=== PATIENT | male | born 2000 | race Caucasian/White ===

== ENCOUNTER 2025-03-18 00:43 | Emergency (ER) | payer MEDICAID, SELFPAY ==
[2025-03-18 00:44] VITALS: BMI 25.7
--- NOTE | 2025-03-18 01:43 | XR_ITS ---
Examination: PA chest single view Technique: Upright PA chest single view Date and time: March 18, 2025, 0142 hrs., Comparison April 06, 2023 Indications: Fever bodyaches coughing beginning 2 weeks ago Findings: Normal heart size. Lungs are clear. Osseous structures are intact Impression: No active disease
[2025-03-18 01:45] VITALS: BP 135/81; PULSE 98; RESP 18; TEMP 38.1; O2SAT 100
[2025-03-18 02:05] LABS: Strep A Rapid Negative (Negative)
[2025-03-18 02:29] VITALS: TEMP 38.1
[2025-03-18] MEDS: IBUPROFEN TAB 400 MG TABLET 800 MG PO (02:29)
[2025-03-18 03:04] LABS: Collection Type, Urine Voided; Squamous Epithelial Cell,Urine 0 /hpf (0-5)
[2025-03-18 03:14] LABS: Bacteria,Urine Rare; Bilirubin,Urine Negative (Negative); Blood,Urine Negative (Negative); Clarity,Urine Clear (Clear/Hazy); Color,Urine Colorless (Lt Yel-Yel); Glucose, Urine Negative (Negative); Ketones,Urine Negative (Negative); Leukocyte Esterase,Urine Negative (Negative); Nitrite,Urine Negative (Negative); PH,Urine 6.5 (5.0-7.0); Protein,Urine Negative (Neg - Trace); RBC,Urine < 1 /hpf (0-3); Specific Gravity,Urine 1.007 (1.001-1.035); Urobilinogen,Urine Negative mg/dL (0.0-1.0); WBC,Urine 1 /hpf (0-5)
[2025-03-18 03:54] VITALS: PULSE 105; RESP 17; TEMP 37.5; O2SAT 98
[2025-03-18 03:57] VITALS: TEMP 37.5
--- NOTE | 2025-03-18 03:57 | EDNOTE_ITS ---
ED Fever RME/HPI General Chief Complaint: Fever Stated Complaint: FEVER, BODYACHES Time Seen by Provider: 03/18/25 01:06 Arrival date/time: 03/18/25 00:43 This is a case of 24-year-old male with no medical history came in in the emergency room due to fever of 102 associated with cough nasal congestion and sore throat patient took COVID test at home and positive no shortness of breath no chest pain persistence of the symptoms this patient decided to start consult here in the emergency room Limitations: no limitations Related Data Previous Rx's ?Medication ?Instructions ?Recorded ciprofloxacin HCl 0.3 % eye drops See Rx Instructions ophthalmic 04/23/18 (eye) .COMPLEX #5 mL lorazepam 0.5 mg tablet (Ativan) 0.5 mg PO QDAY PRN an xiety #14 tabs 06/01/19 ibuprofen 800 mg tablet 800 mg PO TID PRN pain #30 t abs 03/06/23 albuterol sulfate 90 mcg/actuation 1 inh inhalation Q4 H PRN shortness 03/18/25 aerosol inhaler (Ventolin HFA) of breath or wheezing # 8.5 grams amoxicillin 875 mg-potassium 1 tab PO BID #20 tabs clavulanate 125 mg tablet ibuprofen 800 mg tablet 800 mg PO Q8H PRN pain #20 t abs 03/18/25 promethazine-DM 6.25 mg-15 mg/5 mL 5 ml PO Q6H PRN cou gh #118 mL 03/18/25 oral syrup Allergies Allergy/AdvReac Type Severity Reaction Status Date / Time No Known Allergies Allergy Verified 04/06/23 20:25 Review of Systems Review of Systems Systems Reviewed: All systems reviewed, normal except as documented Constitutional Constitutional: Reports system reviewed and no additional complaints, except as documented and Reports as per HPI ENT Ears, Nose, Mouth, and Throat: Reports system reviewed and no additional complaints, except as documented and Reports as per HPI Cardiovascular Cardiovascular: Reports system reviewed and no additional complaints, except as documented and Reports as per HPI Respiratory Respiratory: Reports system reviewed and no additional complaints, except as documented and Reports as per HPI Gastrointestinal Gastrointestinal: Reports system reviewed and no additional complaints, except as documented and Reports as per HPI Neurologic Neurologic: Reports system reviewed and no additional complaints, except as documented and Reports as per HPI Past Medical History Past Medical History CARDIAC: Negative Cardiac Disorders or Congestive Heart Failure RESPIRATORY: Negative Chronic Obstructive Pulmonary Disease (COPD) or Asthma GENITOURINARY: Negative Renal Disease ENDOCRINE: Negative Diabetes Mellitus Type 1 or Diabetes Mellitus Type 2 HEMATOLOGIC: Negative Sickle Cell Disease Social History SMOKING STATUS: Never smoker Physical Exam General Limitations: no limitations General appearance: alert, in no apparent distress and other (Patient is awake alert oriented not in distress nontoxic looking well-hydrated well-nourished) Head Head exam: atraumatic, normocephalic and normal inspection Eye Eye exam: Present normal appearance, PERRL and EOMI ENT ENT exam: Present normal exam, normal oropharynx, mucous membranes moist and other (HEENT exam is normal and unremarkable) Neck Neck exam: Present normal inspection, full ROM, trachea midline and other (Negative for meningeal sign); Absent tenderness, meningismus, lymphadenopathy or thyromegaly Chest Chest inspection: Present normal inspection and symmetric chest wall rise; Absent tenderness, rash or abscess Respiratory Respiratory exam: Present normal lung sounds bilaterally and other (No crackles no rales no retraction no stridor no wheezing); Absent respiratory distress, wheezes, stridor, accessory muscle use or prolonged expiratory phase Cardiovascular Cardiovascular exam: Present regular rate, normal rhythm and normal heart sounds; Absent bradycardia, tachycardia, irregular rhythm, systolic murmur or diastolic murmur Abdominal Exam Abdominal exam: Present soft and normal bowel sounds; Absent distention, tenderness, guarding, rebound, rigidity, diminished bowel sounds, hyperactive bowel sounds, hypoactive bowel sounds or organomegaly Extremities Exam Extremities exam: Present normal inspection and full ROM Back Exam Back exam: Present normal inspection and full ROM Neurological Exam Neurological exam: Present alert, oriented X3, CN II-XII intact, normal gait and reflexes normal; Absent motor sensory deficit Psychiatric Psychiatric exam: Present normal affect and normal mood Skin Skin exam: Present warm, dry, intact, normal color and other (Excellent skin turgor) ED Exam General Limitations: Present no limitations General appearance: Present alert, in no apparent distress and other (Patient is awake alert oriented not in distress nontoxic looking well-hydrated well- nourished) Head Head exam: Present atraumatic, normocephalic and normal inspection Eye Eye exam: Present normal appearance, PERRL and EOMI ENT ENT exam: Present normal exam, normal oropharynx, mucous membranes moist and other (HEENT exam is normal and unremarkable) Neck Neck exam: Present normal inspection, full ROM, trachea midline and other (Negative for meningeal sign); Absent tenderness, meningismus, lymphadenopathy or thyromegaly Chest Chest inspection: Present normal inspection and symmetric chest wall rise; Absent tenderness, rash or abscess Respiratory Respiratory exam: Present normal lung sounds bilaterally and other (No crackles no rales no retraction no stridor no wheezing); Absent respiratory distress, wheezes, stridor, accessory muscle use or prolonged expiratory phase Cardiovascular Cardiovascular exam: Present regular rate, normal rhythm and normal heart sounds; Absent bradycardia, tachycardia, irregular rhythm, systolic murmur or diastolic murmur Abdominal Exam Abdominal exam: Present soft and normal bowel sounds; Absent distention, te nderness, guarding, rebound, rigidity, diminished bowel sounds, hyperactive bowel sounds, hypoactive bowel sounds or organomegaly Extremities Exam Extremities exam: Present normal inspection and full ROM Back Exam Back exam: Present normal inspection and full ROM Neurological Exam Neurological exam: Present alert, oriented X3, CN II-XII intact, normal gait and reflexes normal; Absent motor sensory deficit Psychiatric Psychiatric exam: Present normal affect and normal mood Skin Skin exam: Present warm, dry, intact, normal color and other (Excellent skin turgor) Course Quality Measures none Orders Category Date Time Status Bedside COVID-19 Antigen Test NOW Care 03/18/25 01:43 Active Bedside Influenza A&B Antigen Test NOW Care 03/18/25 01:43 Completed XR chest 1V portable Stat Exams 03/18/25 01:43 Taken Strep A Rapid Stat Lab 03/18/25 01:52 Completed Urinalysis Stat Lab 03/18/25 02:40 Completed Acetaminophen Tab [Tylenol Tab] Med 03/18/25 01:46 Discontinued 650 mg PO X1 ONE Ibuprofen Tab [Motrin Tab] Med 03/18/25 02:18 Discontinued 800 mg PO X1 ONE Vital Signs Vital signs: Vital Signs Temperature 100.5 F H 03/18/25 01:45 Pulse Rate 98 03/18/25 01:45 Respiratory Rate 18 03/18/25 01:45 Blood Pressure 135/81 H 03/18/25 01:45 Pulse Oximetry (%) 100 03/18/25 01:45 Oxygen Delivery Method Room Air 03/18/25 01:45 Oxygen saturation is 100% in room air normal Fever MDM Narrative MDM Narrative:: This is a case of 24-year-old male with no medical history came in in the emergency room due to fever of 102 associated with cough nasal congestion and sore throat patient took COVID test at home and positive no shortness of breath no chest pain persistence of the symptoms this patient decided to start consult here in the emergency room patient is awake alert oriented not in distress nontoxic looking well-hydrated well-nourished not in distress nontoxic looking patient is febrile at 100.5 not tachycardic not tachypneic BP stable not hypoxic patient was given Motrin after 30 minutes patient temperature was rechecked and it was 99.5 patient lungs sound is clear no crackles no rales no retraction no stridor HEENT exam is normal and unremarkable negative for meningeal sign excellent skin turgor no signs and symptoms of dehydration abdomen soft no guarding no rebound no rigidity no tenderness the rest of the physical examination neurological exam is normal and unremarkable patient is positive for COVID-negative for flu negative for rapid strep chest x-ray showed pneumonia urinalysis is normal patient was discharged with Augmentin for pneumonia Ventolin inhaler ibuprofen for fever patient will follow-up with PCP in 2 days for reevaluation he will continue to monitor his temperature and take Tylenol Motrin as needed for fever keep hydrated self quarantine per CDC protocol patient will follow-up with PCP in 2 days for reevaluation and for any worsening symptoms or any emergent concern return precaution in the ER was advised Patient was discharged with comfortable condition walking with stable gait. Patient verbalized no further complains explained diagnosis and answered patient question. Patient is comfortable with the proposed management plan including the need to follow up with his/her primary care physician and any specialist if applicable Discussed patient for any urgent condition or worsening sx, He/She needed to go to emergency room immediately or call 911. Patient acknowledge the responsibility to follow up as instructed and to monitor her/his symptoms. For any persistence of the symptoms for more than 3-5 days return precaution a dvised. Discussed the result of the test and was given printed discharge instruction Patient data External records reviewed:: [facility] previous records Clinical information provided by:: patient Social determinants that could affect healthcare access:: none Patient has the following chronic illnesses:: None How is presenting disease/condition affected by chronic disease/condition?: no chronic disease Evaluation data The following diagnostics were reviewed and interpreted by me:: lab results and radiology exam(s) Lab and/or radiology exams considered but not ordered:: Reviewed Interpretation Summary: Reviewed Medications / Prescriptions Medications or Prescriptions considered but not ordered:: Given Medication administrations:: Medication Administration History Discontinued Medications Acetaminophen (Acetaminophen 325 Mg Tablet) 650 mg PO X1 ONE Stop: 03/18/25 01:47 Last Admin: 03/18/25 02:21 Dose: Not Given Documented By: MARYANN Non-Admin Reason: Discontinued Ibuprofen (Ibuprofen Tab 400 Mg Tablet) 800 mg PO X1 ONE Stop: 03/18/25 02:19 Last Admin: 03/18/25 02:29 Dose: 800 mg Documented By: MARYANN Comments: [place] NOT SCANNING Given Consultations Consultation(s) initiated? (list below): No Diagnosis Fever Differential Diagnosis: fever of unknown origin, community acquired pneumonia, pyelonephritis, viral infection, influenza and other (Fever pneumonia) Most likely diagnosis given after review of the tests above:: Fever pneumonia pharyngitis Admission Indicated Admission indicated?: not indicated Explain why admission is indicated or not indicated:: Not indicated Admission Request Was there a request for admission?: No Admission Attestation Admission request attestation: Not indicated Disposition Plan Disposition Plan: Discharge Discharge Attestation Discharge Attestation: The patient and all family members were given an opportunity to ask questions and understood the discharge instructions. Discharge instructions specifically effects, indications for sooner follow up or return to the emergency department, and the expected course of current diagnosis. Patient condition: Stable Discharge Plan Plan Patient Disposition: HOME (Self Care) Patient condition on transfer: Stable Prescriptions/Referrals Prescriptions/Med Rec: New amoxicillin-pot clavulanate 875-125 mg tablet 1 tab PO BID Qty: 20 0RF promethazine-DM 6.25-15 mg/5 mL syrup 5 ml PO Q6H PRN (Reason: cough) Qty: 118 0RF ibuprofen 800 mg tablet 800 mg PO Q8H PRN (Reason: pain) Qty: 20 0RF albuterol sulfate [Ventolin HFA] 90 mcg/actuation HFA aerosol inhaler 1 inh inhalation Q4H PRN (Reason: shortness of breath or wheezing) Qty: 8.5 0RF No Action ciprofloxacin HCl 0.3 % drops See Rx Instructions OPHTHALMIC .COMPLEX Qty: 5 0RF Dose Instruction: put 1-2 drps in affected eye(s) every 2hr up to 8 times/day x2days; then 4 times/day x5days ophthalmic (eye) Rx Instructions: put 1-2 drps in affected eye(s) every 2hr up to 8 times/day x2days; then 4 times/day x5days ophthalmic (eye) lorazepam [Ativan] 0.5 mg tablet 0.5 mg PO QDAY PRN (Reason: anxiety) Qty: 14 0RF ibuprofen 800 mg tablet 800 mg PO TID PRN (Reason: pain) Qty: 30 0RF Referrals: Stephan Angulo MD [Primary Care Provider, Family Practice] - In 1 week Problem List Clinical Impression: Fever, COVID-19, Pneumonia, Pharyngitis Patient/Caregiver Discharge Instructions Education Materials: When You Have a Sore Throat, 2019-nCoV, ED FUO Adult, ED Pneumonia (Adult) Additional Instructions: Follow-up with your primary care physician in 2 days for reevaluation worsening symptoms or any emergent concern call 911 or go to the nearest emergency room take your medication as directed finish the course of antibiotic increase water intake keep hydrated take vitamin C and zinc daily self quarantine per CDC protocol monitor your temperature take Tylenol and Motrin for pain monitor your oxygen saturation and return to the emergency room if your oxygen saturation is less than 92% Print Language: [place] Island[place] Stand Alone Forms: Joann Award Info., Patient Portal Info Letter PA/ISATU Supervising Physician BENITO/ISATU Supervising Physician: Dr. Vazquez
== END 2025-03-18 04:11 | disposition home or self-care (01) ==
PROVIDERS: Nurse Practitioner Family; Emergency Provider Emergency Medicine; PCP Family Medicine
DX: U07.1 COVID-19 (principal); J12.82 Pneumonia due to coronavirus disease 2019; J02.9 Acute pharyngitis, unspecified
CPT/HCPCS: 71045; 81001; 87400; 87651; 87811; 99283; A9270